=== PATIENT | male | born 1980 ===

== ENCOUNTER 2021-03-03 19:19 | Emergency (ER) | payer SELFPAY ==
[2021-03-03 20:05] VITALS: BP 124/76
[2021-03-03] MEDS ORDERED: valACYclovir 500 MG TAB PO NR (20:36)
[2021-03-03] MEDS ORDERED: IBUPROFEN 600 MG TAB PO ONE (20:36)
--- NOTE | 2021-03-03 21:24 | Emergency Department Report ---
ED Eye Problem HPI - General Chief complaint: Eye Problems Stated complaint: EYE RED Source: patient Mode of arrival: Ambulatory Limitations: No Limitations - History of Present Illness Initial comments: Patient is a 40-year-old male with no past medical history presents to the ED with complaint of acute onset persistent severe left eye pain with purulent discharge and mild erythematous maculopapular lesions on left upper eyelid and left zygomatic area for the last 3 days. Patient states that the pain in the itching on the left eye has been persistent and getting worse. Patient denies vision loss, vision changes, photophobia, nausea, vomiting, traumatic injury, headache, dizziness, fever and chills, cough, sore throat, facial numbness or weakness. MD chief complaint: eye pain (left eye), eye redness (left eye), other (left eyelid erythematous maculopapular painful lesions) -: Sudden, days(s) (3) Onset Description: sudden Location: left eye Place: home If Injury: none Eye Symptoms: burning, redness, pain, itching, discharge Severity: severe Severity scale (0 -10): 7 If Pain, Quality: sharp, burning, aching, throbbing Consistency: constant Context: recent uri Associated Symptoms: none, rhinorrhea. denies: headache, neck pain, nausea/vomiting, cough, fever, shortness of breath Treatments Prior to Arrival: none - Related Data Patient Tetanus UTD: Yes Previous Rx's Medication Instructions Recorded Last Taken Type Gentamicin 0.3% Ophth Soln 1 drops OP Q4H #5 ml 03/03/21 Unknown Rx Ibuprofen [Motrin] 800 mg PO Q8HR PRN #30 tablet 03/03/21 Unknown Rx Valacyclovir HCl [Valacyclovir] 1,000 mg PO Q8H #30 tablet 03/03/21 Unknown Rx Allergies Allergy/AdvReac Type Severity Reaction Status Date / Time No Known Allergies Allergy Verified 03/03/21 20:47 ED Review of Systems ROS: Stated complaint: EYE RED Other details as noted in HPI Constitutional: denies: chills, fever Eyes: eye pain (left eye pain and redness), eye discharge (Purulent), other (Mild erythematous maculopapular lesions on left upper eyelid and left zygomatic area). denies: vision change ENT: congestion. denies: ear pain, throat pain Respiratory: denies: cough, shortness of breath, wheezing Cardiovascular: denies: chest pain, palpitations Endocrine: no symptoms reported Gastrointestinal: denies: abdominal pain, nausea, vomiting, diarrhea Genitourinary: denies: urgency, dysuria Musculoskeletal: denies: back pain, joint swelling, arthralgia Skin: denies: rash, lesions Neurological: denies: headache, weakness, paresthesias Psychiatric: denies: anxiety, depression Hematological/Lymphatic: denies: easy bleeding, easy bruising ED Past Medical Hx - Medications Home Medications: Home Medications Medication Instructions Recorded Confirmed Last Taken Type Gentamicin 0.3% Ophth Soln 1 drops OP Q4H #5 ml 03/03/21 Unknown Rx Ibuprofen [Motrin] 800 mg PO Q8HR PRN #30 tablet 03/03/21 Unknown Rx Valacyclovir HCl [Valacyclovir] 1,000 mg PO Q8H #30 tablet 03/03/21 Unknown Rx ED Physical Exam - General Limitations: No Limitations General appearance: alert, in no apparent distress - Head Head exam: Present: atraumatic, normocephalic, normal inspection - Eye Eye exam: Present: PERRL, EOMI, other (Diffuse erythematous left conjunctiva; multiple erythematous maculopapular lesions on left upper eyelid and left leg matricaria) - ENT ENT exam: Present: normal orophraynx, mucous membranes moist, TM's normal bilaterally, normal external ear exam, other (Grossly congested nasal passages) - Neck Neck exam: Present: normal inspection, full ROM. Absent: tenderness, lymphadenopathy - Respiratory Respiratory exam: Present: normal lung sounds bilaterally. Absent: respiratory distress, wheezes, rales, rhonchi, chest wall tenderness, accessory muscle use, decreased breath sounds, prolonged expiratory - Cardiovascular Cardiovascular Exam: Present: regular rate, normal rhythm, normal heart sounds. Absent: systolic murmur, diastolic murmur, rubs, gallop - GI/Abdominal GI/Abdominal exam: Present: soft, normal bowel sounds. Absent: distended, tenderness, guarding, rebound, hyperactive bowel sounds, hypoactive bowel sounds, organomegaly - Extremities Exam Extremities exam: Present: normal inspection, full ROM, normal capillary refill - Back Exam Back exam: Present: normal inspection, full ROM. Absent: tenderness, CVA tenderness (R), CVA tenderness (L), muscle spasm, paraspinal tenderness, vertebral tenderness - Neurological Exam Neurological exam: Present: alert, oriented X3, CN II-XII intact, normal gait, reflexes normal - Psychiatric Psychiatric exam: Present: normal affect, normal mood - Skin Skin exam: Present: warm, dry, intact, normal color. Absent: rash ED Course Vital Signs 03/03/21 20:05 Temperature 98.4 F Pulse Rate 84 Respiratory 16 Rate Blood Pressure 124/76 [Left] O2 Sat by Pulse 100 Oximetry ED Medical Decision Making - Medical Decision Making This is a 40-year-old male with no past medical history presents to the ED with complaint of acute onset persistent severe left eye pain with purulent discharge and mild erythematous maculopapular lesions on left upper eyelid and left zygomatic area for the last 3 days. Patient states that the pain in the itching on the left eye has been persistent and getting worse. In the ED, patient is alert and oriented x3 and is not in any distress. Patient was treated for pain in the ED and also given initial oral antiviral medication, Valtrex 1 g p.o. x1 in the ED for suspected facial shingles outbreak. Patient was therefore discharged home on pain medications, prescription of Valtrex and prescription of antibiotic eyedrops for suspected acute bacterial conjunctivitis of left eye. Patient was given a referral to the [facility] for further evaluation. Patient was advised to contact the Eye Center promptly on Friday March 05, 2021 to schedule a follow-up appointment. Patient was advised return to the ED immediately if symptoms get worse. - Differential Diagnosis Bacterial conjunctivitis; keratitis; facial shingles Critical care attestation.: If time is entered above; I have spent that time in minutes in the direct care of this critically ill patient, excluding procedure time. ED Disposition Clinical Impression: Acute bacterial conjunctivitis of left eye, Herpes zoster virus infection of face and ear nerves Disposition: HOME / SELF CARE / HOMELESS Is pt being admited?: No Does the pt Need Aspirin: No Condition: Stable Instructions: Postherpetic Neuralgia, Bacterial Conjunctivitis, Adult, [id number], Shingles, [id number] Additional Instructions: Watchtower los medicamentos por va oral segn lo recomendado, aplique las gotas para los ojos henry se recomienda y tome analgsicos segn sea necesario. Realice un seguimiento con el centro oftalmolgico de inmediato, segn lo recomendado, comunicndose con ellos el 2020 para programar chauncey mago de seguimiento. Regrese al servicio de urgencias de inmediato si los sntomas empeoran. Prescriptions: Gentamicin 0.3% Ophth Soln 1 drops OP Q4H #5 ml Ibuprofen [Motrin] 800 mg PO Q8HR PRN #30 tablet PRN Reason: Pain , Severe (7-10) Valacyclovir HCl [Valacyclovir] 1,000 mg PO Q8H #30 tablet Referrals: GARTH SORIA MD [Staff Physician] - [facility] (Contact the [facility] promptly on Friday, March 05, 2021 to schedule a follow-up appointment.) Time of Disposition: 21:28 Print Language: CZECH
== END 2021-03-03 22:40 | disposition home or self-care (01) ==
LOC: ED 19:19
DX: H10.9 Unspecified conjunctivitis (principal); B96.89 Other specified bacterial agents as the cause of diseases classified elsewhere; B02.8 Zoster with other complications; Z79.899 Other long term (current) drug therapy
CPT/HCPCS: 99282